=== PATIENT | female | born 1960 | race Hispanic/Latino ===

== ENCOUNTER 2018-05-13 14:42 | Outpatient (CLI) | payer OTHER ==
--- NOTE | 2018-05-14 08:16 | XRay Report ---
XRAY LEFT HAND THREE VIEWS: 05/13/18 14:42:00 CLINICAL: Left hand pain. FINDINGS: No fracture or dislocation. Mild osteopenia. Moderate osteoarthritis at the basal joint of the thumb, the first MCP joint and the first DIP joint. Lesser degrees of osteoarthritis at IP joints of the rest of the digits. No erosions. Mild radiocarpal joint arthritis. Mild The carpal bones are intact. Normal soft tissues. IMPRESSION: Osteoarthritis
== END 2018-05-13 14:43 | disposition home or self-care (01) ==
LOC: SPVIMAG 14:42
PROVIDERS: ATTEND Orthopaedic Surgery
DX: M19.042 Primary osteoarthritis, left hand (principal); Z90.710 Acquired absence of both cervix and uterus